=== PATIENT | male | born 1990 | race Caucasian/White ===

== ENCOUNTER 2017-08-19 17:10 | Emergency (ER) | END 2017-08-19 18:31 | disposition home or self-care (01) | DX: S62.524A Nondisplaced fracture of distal phalanx of right thumb, initial encounter for closed fracture (principal); W23.0XXA Caught, crushed, jammed, or pinched between moving objects, initial encounter; Y93.67 Activity, basketball | CPT/HCPCS: 73140; 99283; L3808 ==